=== PATIENT | male | born 1960 | race Caucasian/White ===

== ENCOUNTER 2024-01-04 15:15 | Emergency (ER) | payer OTHER ==
[~2024-01-04] VITALS: Ht 165.1 cm; Wt 70.8 kg
[2024-01-04 15:37] VITALS: BP 116/64; PULSE 86; RESP 20; TEMP 99; O2SAT 95
[2024-01-04] MEDS ORDERED: CEPH-588 PO (15:57)
[2024-01-05] MEDS ORDERED: IBUP-1842 PO (17:49)
[2024-01-05] MEDS ORDERED: ACET-10509 PO (17:49)
== END 2024-01-04 16:09 | disposition home or self-care (01) ==
LOC: MED 15:15
DX: L03.114 Cellulitis of left upper limb (principal); J45.909 Unspecified asthma, uncomplicated; Z79.899 Other long term (current) drug therapy
CPT/HCPCS: 99283

== ENCOUNTER 2024-01-05 16:16 | Emergency (ER) | payer OTHER ==
[~2024-01-05] VITALS: Ht 167.6 cm; Wt 76.2 kg
[~2024-01-05 16:16] MED LIST: CEPH-588 PO
[2024-01-05 16:49] VITALS: BP 125/100; PULSE 92; RESP 20; TEMP 97.9; O2SAT 96
[2024-01-05] MEDS ORDERED: ACET-10509 PO (17:49)
[2024-01-05] MEDS ORDERED: IBUP-1842 PO (17:49)
[2024-01-05] MEDS: ACETAMINOPHEN EXTRA STRENGTH 500 MG TAB PO ONE (17:54)
[2024-01-05] MEDS: IBUPROFEN 600 MG TAB PO ONE (17:54)
== END 2024-01-05 18:00 | disposition home or self-care (01) ==
LOC: MED 16:16
DX: L03.114 Cellulitis of left upper limb (principal); Z79.899 Other long term (current) drug therapy
CPT/HCPCS: 99284

== ENCOUNTER 2024-02-06 14:56 | Emergency (ER) | payer OTHER ==
[~2024-02-06] VITALS: Ht 167.6 cm; Wt 76.9 kg
[~2024-02-06 14:56] MED LIST changes: +ACET-10509 PO; +IBUP-1842 PO
[2024-02-06 15:19] VITALS: BP 138/74; PULSE 91; RESP 18; TEMP 98.6; O2SAT 94
[2024-02-06] MEDS: ALBUTEROL SULFATE/IPRATROPIU 3 ML SOL IH ONE ×2 (15:48→15:49)
[2024-02-06] MEDS: predniSONE 20 MG TAB PO ONE (15:49)
[2024-02-06 15:52] VITALS: PULSE 82; PULSE 85; RESP 16; RESP 18; O2SAT 97; O2SAT 98
[2024-02-06] MEDS ORDERED: PRED20TA5 PO (16:33)
[2024-02-06] MEDS ORDERED: ALBU0.0912 IH (16:33)
[2024-02-06] MEDS ORDERED: PRON INH (16:33)
[2024-02-06 16:38] VITALS: BP 130/62; PULSE 89; RESP 16; TEMP 97.8; O2SAT 97
== END 2024-02-06 16:38 | disposition home or self-care (01) ==
LOC: MED 14:56
DX: J45.901 Unspecified asthma with (acute) exacerbation (principal); R03.0 Elevated blood-pressure reading, without diagnosis of hypertension; Z79.1 Long term (current) use of non-steroidal anti-inflammatories (NSAID); Z79.899 Other long term (current) drug therapy
CPT/HCPCS: 94640; 99283; J7512

== ENCOUNTER 2024-04-24 15:19 | Emergency (ER) | payer OTHER ==
[~2024-04-24] VITALS: Ht 167.6 cm; Wt 78.1 kg
[~2024-04-24 15:19] MED LIST changes: +ALBU0.0912 IH; +PRED20TA5 PO; +PRON INH
[2024-04-24 15:34] VITALS: BP 138/71; PULSE 90; RESP 18; TEMP 98.2; O2SAT 97
[2024-04-24 16:14] LABS: BASOPHILS # (AUTO) 0.1 K/uL (0.00-0.22); BASOPHILS % (AUTO) 1.2 % (0.0-2.0); EOSINOPHILS # (AUTO) 1.5 K/uL (0-0.4); EOSINOPHILS % (AUTO) 13.4 % (0.0-4.0); HEMATOCRIT 43.3 % (36-52); HEMOGLOBIN 14.6 g/dL (12.0-18.0); LYMPHOCYTES # (AUTO) 1.8 K/uL (2.0-11.5); LYMPHOCYTES % (AUTO) 16.4 % (20.5-51.1); MEAN CORPUSCULAR HEMOGLOBIN 28 pg (27-31); MEAN CORPUSCULAR HGB CONC 34 g/dL (33-37); MEAN CORPUSCULAR VOLUME 84.3 fL (80-94); MONOCYTES # (AUTO) 1.3 K/uL (0.8-1.0); MONOCYTES % (AUTO) 11.4 % (1.7-9.3); NEUTROPHILS # (AUTO) 6.3 K/uL (1.8-7.7); NEUTROPHILS % (AUTO) 57.6 % (42.2-75.2); PLATELET COUNT (AUTO) 232 K/uL (140-450); RED BLOOD CELL COUNT(AUTO) 5.13 MIL/uL (4.20-6.10); RED CELL DISTRIBUTION WIDTH 13.4 % (11.6-13.7)
[2024-04-24 16:23] VITALS: PULSE 85; RESP 20; O2SAT 96
[2024-04-24] MEDS: ALBUTEROL SULFATE/IPRATROPIU 3 ML SOL IH ONE (16:23)
[2024-04-24 16:27] LABS: ANION GAP 13.6 (8-16); CALCIUM 9.3 mg/dL (8.5-10.1); CARBON DIOXIDE 26.1 mmol/L (21-32); CREATININE 0.8 mg/dL (0.6-1.3); POTASSIUM 3.7 mmol/L (3.5-5.1)
[2024-04-24] MEDS ORDERED: PRED20TA5 PO (17:09)
[2024-04-24] MEDS ORDERED: ALBU0.0912 INH (17:09)
[2024-04-24] MEDS ORDERED: DEXAMETHASONE 10 MG/ML VIAL ONE (17:19)
[2024-04-24 17:24] VITALS: PULSE 83; O2SAT 100
[2024-04-24] MEDS: DEXAMETHASONE 10 MG/ML VIAL IM ONE (17:25)
== END 2024-04-24 17:33 | disposition home or self-care (01) ==
LOC: MED 15:19
DX: J45.901 Unspecified asthma with (acute) exacerbation (principal); R03.0 Elevated blood-pressure reading, without diagnosis of hypertension; Z79.1 Long term (current) use of non-steroidal anti-inflammatories (NSAID); Z79.2 Long term (current) use of antibiotics; Z79.899 Other long term (current) drug therapy
CPT/HCPCS: 36415; 71046; 80048; 83880; 84484; 85025; 93005; 94640; 96372; 99285; J1100

== ENCOUNTER 2024-07-17 16:54 | Emergency (ER) | payer OTHER ==
[~2024-07-17] VITALS: Ht 152.4 cm; Wt 76.9 kg
[~2024-07-17 16:54] MED LIST changes: -ACET-10509 PO; +ACET500T99 PO; +ALBU0.0912 INH
[2024-07-17 17:07] VITALS: BP 124/58; PULSE 91; RESP 19; TEMP 98.1; O2SAT 98
[2024-07-17] MEDS: ALBUTEROL SULFATE/IPRATROPIU 3 ML SOL IH SCH (18:27)
[2024-07-17] MEDS: predniSONE 20 MG TAB PO SCH (18:27)
[2024-07-17] MEDS ORDERED: ALBU-71 NEB (19:08)
[2024-07-17] MEDS ORDERED: ALBU0.0912 IH (19:08)
[2024-07-17] MEDS ORDERED: PRED20TA5 PO (19:08)
[2024-07-17 19:16] VITALS: BP 122/62; PULSE 88; RESP 16; TEMP 98.1; O2SAT 99
== END 2024-07-17 19:16 | disposition home or self-care (01) ==
LOC: MED 16:54
DX: J45.909 Unspecified asthma, uncomplicated (principal); R03.0 Elevated blood-pressure reading, without diagnosis of hypertension; Z79.899 Other long term (current) drug therapy
CPT/HCPCS: 93005; 94640; 99283; J7512

== ENCOUNTER 2024-09-01 13:35 | Emergency (ER) | payer OTHER ==
[~2024-09-01] VITALS: Ht 167.6 cm; Wt 80.3 kg
[~2024-09-01 13:35] MED LIST changes: +ALBU-71 NEB
[2024-09-01 13:42] VITALS: BP 147/84; PULSE 102; RESP 16; TEMP 98.6; O2SAT 96
[2024-09-01] MEDS ORDERED: ALBU0.0912 IH (14:06)
[2024-09-01] MEDS ORDERED: PRON INH (14:06)
[2024-09-01] MEDS ORDERED: PRED20TA5 PO (14:06)
== END 2024-09-01 14:11 | disposition home or self-care (01) ==
LOC: MED 13:35
DX: J45.909 Unspecified asthma, uncomplicated (principal); Z76.0 Encounter for issue of repeat prescription; Z79.899 Other long term (current) drug therapy
CPT/HCPCS: 99281